=== PATIENT | male | born 1985 | race Caucasian/White ===

== ENCOUNTER 2017-05-21 20:11 | Emergency (ER) | payer BC, OTHER ==
[~2017-05-21] VITALS: Ht 190.5 cm; Wt 124.7 kg
[2017-05-21] MEDS ORDERED: METOCLOPRAMIDE HCL 10 MG/2 ML VIAL IM ONE (22:45)
[2017-05-21] MEDS ORDERED: diphenhydrAMINE 50 MG/1 ML VIAL IM ONE (22:45)
[2017-05-21 23:04] LABS: BASOPHILS # (AUTO) 0.1 K/uL (0.0-8.0); BASOPHILS % (AUTO) 0.6 % (0.0-2.0); EOSINOPHILS # (AUTO) 0.3 K/uL (0.0-0.7); EOSINOPHILS % (AUTO) 3.1 % (0.0-7.0); HEMATOCRIT 40.8 % (36.7-47.1); HEMOGLOBIN 14.4 g/dL (12.5-16.3); LYMPHOCYTES # (AUTO) 5.5 K/uL (20.0-40.0); LYMPHOCYTES % (AUTO) 50.4 % (20.5-51.5); MEAN CORPUSCULAR HEMOGLOBIN 30.1 uug (23.8-33.4); MEAN CORPUSCULAR HGB CONC 35 g/dL (32.5-36.3); MEAN CORPUSCULAR VOLUME 85.2 fL (73.0-96.2); MONOCYTES # (AUTO) 0.6 K/uL (2.0-10.0); MONOCYTES % (AUTO) 5.6 % (0.0-11.0); NEUTROPHILS # (AUTO) 4.4 K/uL (1.8-8.9); NEUTROPHILS % (AUTO) 40.3 % (38.5-71.5); PLATELET COUNT (AUTO) 259 K/uL (152-348); RED BLOOD CELL COUNT(AUTO) 4.79 MIL/uL (4.06-5.63); WHITE BLOOD COUNT (AUTO) 10.8 K/uL (3.6-10.2)
[2017-05-21] MEDS ORDERED: METOCLOPRAMIDE HCL 10 MG/2 ML VIAL ONE (23:05)
[2017-05-21] MEDS ORDERED: diphenhydrAMINE 50 MG/1 ML VIAL ONE (23:05)
[2017-05-21 23:11] LABS: POTASSIUM 4.2 mmol/L (3.5-5.1)
[2017-05-21 23:22] LABS: BILIRUBIN,DIRECT 0.1 mg/dL (0.0-0.2); BILIRUBIN,TOTAL 0.3 mg/dL (0.2-1.0)
[2017-05-22 00:33] VITALS: BP 124/70
--- NOTE | 2017-05-22 00:34 | NUR ---
Patient discharged to home in stable conditon. Written and verbal after care instructions given as well as rx for MRI and informed of ordered referral. Patient verbalizes understanding of instructions.
== END 2017-05-22 00:35 | disposition home or self-care (01) ==
LOC: ER 20:11
DX: R51 Headache (principal); H92.01 Otalgia, right ear; F17.200 Nicotine dependence, unspecified, uncomplicated
CPT/HCPCS: 36415; 70450; 85025; A4663; J1200; J2765

== ENCOUNTER 2017-06-05 21:35 | Emergency (ER) | payer BC ==
--- NOTE | 2017-06-05 22:34 | NUR ---
PATIENT IS NOT IN WAITING ROOM X 3 ATTEMPTS. INITIAL CALL @ 2201. 2ND CALL @ 221. 3RD CALL @ 2232. PATIENT LEFT WITHOUT BEING TRIAGED
== END 2017-06-05 22:37 | disposition left against medical advice (07) ==
LOC: ER 21:36
DX: Z53.21 Procedure and treatment not carried out due to patient leaving prior to being seen by health care provider (principal)

== ENCOUNTER 2017-11-26 18:32 | Emergency (ER) | payer BC ==
[~2017-11-26] VITALS: Ht 190.5 cm; Wt 127.0 kg
--- NOTE | 2017-11-26 19:04 | NUR ---
Patient discharged to home in stable conditon. Written and verbal after care instructions given. Patient verbalizes understanding of instructions.
[2017-11-26 19:05] VITALS: BP 148/88
== END 2017-11-26 19:06 | disposition home or self-care (01) ==
LOC: ER 18:33
DX: B37.42 Candidal balanitis (principal); F17.200 Nicotine dependence, unspecified, uncomplicated
CPT/HCPCS: A4663

== ENCOUNTER 2018-05-18 11:12 | Emergency (ER) | payer BC ==
[~2018-05-18] VITALS: Ht 188 cm; Wt 120.2 kg
--- NOTE | 2018-05-18 12:00 | NUR ---
DR HERNANDEZ AT THE BEDSIDE FOR MSE.
[2018-05-18] MEDS ORDERED: ACETAMINOPHEN ES 500 MG TABLET PO ONE (12:15)
[2018-05-18] MEDS ORDERED: ACETAMINOPHEN ES 500 MG TABLET ONE (12:22)
[2018-05-18 13:17] LABS: *MONOTEST NEGATIVE (NEGATIVE)
--- NOTE | 2018-05-18 13:30 | NUR ---
Patient discharged to home in stable conditon. Written and verbal after care instructions given. Patient verbalizes understanding of instructions.
[2018-05-18 14:31] VITALS: BP 144/67
== END 2018-05-18 13:30 | disposition home or self-care (01) ==
LOC: ER 11:12
DX: J02.9 Acute pharyngitis, unspecified (principal); F17.200 Nicotine dependence, unspecified, uncomplicated
CPT/HCPCS: 36415; 86308; 86403; 87070; A4663; A9150